=== PATIENT | female | born 1985 | race Caucasian/White ===

== ENCOUNTER 2022-01-13 13:57 | Emergency (ER) | payer OTHER, SELFPAY ==
[2022-01-13] VITALS (9 sets, daily range): BP systolic 134–157; BP diastolic 70–96; PULSE 63–83; RESP 15–21; TEMP 36.3; O2SAT 98–100; BMI 32.0
--- NOTE | 2022-01-13 14:15 | DI.CT.S_ITS ---
PROCEDURE: CT STROKE INDICATIONS: Right-sided weakness TECHNIQUE: Noncontrast 4.5 mm thick angled axial sections acquired from the foramen magnum to the vertex, with coronal reformats. For radiation dose reduction, the following was used: automated exposure control, adjustment of mA and/or kV according to patient size. COMPARISON: None. FINDINGS: Image quality: Excellent. CSF spaces: Basal cisterns are patent. No extra-axial fluid collections. Ventricles are normal in size and shape. Brain: No midline shift. No intracranial masses or hemorrhage. Ortez-white matter interface is normal. Skull and face: Calvarium and visualized facial bones are intact, without suspicious lesions. Sinuses: Visualized sinuses and mastoids are clear. IMPRESSION: No acute intracranial abnormality. Findings were discussed with the referring physician, Dr. Devries, by telephone on 01/13/2022 at 2:33 PM. This study fulfills neurological imaging criteria for inclusion or exclusion of acute stroke therapies based on available published neurological imaging guidelines. Dictated by: Casey Vidales M.D. on 01/13/2022 at 14:30 Approved by: Casey Vidales M.D. on 01/13/2022 at 14:33
--- NOTE | 2022-01-13 14:27 | DI.CT.S_ITS ---
PROCEDURE: CT ANGIO HEAD AND NECK INDICATIONS: Right-sided weakness TECHNIQUE: Noncontrast images were performed earlier in the day and not repeated. After the administration of intravenous contrast, 1 mm thick sections acquired from the aortic arch through the [place] of [place]. Post-contrast 4.5 mm thick sections then re-acquired from the foramen magnum to the vertex. 3-dimensional slcemmg-specrfhec-hqtyvyshdl (MIP) and/or volume rendering reformats were acquired of the central intracranial vasculature and neck separately. For radiation dose reduction, the following was used: automated exposure control, adjustment of mA and/or kV according to patient size. COMPARISON: [facility], CT, CT STROKE, 01/13/2022, 14:19. FINDINGS: Image quality: Excellent. BRAIN: CSF spaces: Ventricles are normal in size and shape. Basal cisterns are patent. No extra-axial fluid collections. Brain: No midline shift. No intracranial bleeds or masses. Ortez-white matter interface appears intact. Skull and face: Calvarium and facial bones appear intact, without suspicious lesions. Orbits appear normal. Sinuses: Sinuses and mastoids are clear. HEAD CT ANGIOGRAPHY: Anterior circulation: Intracranial internal carotid arteries are normal in size and flow. The flow within the paired anterior cerebral arteries is normal and symmetric. The flow within the middle cerebral arteries is normal and symmetric. Note is made of early trifurcation of the right middle cerebral artery, with a very short right M1 segment. This is regarded to be a developmental variant. The anterior communicating artery is seen. No aneurysms are seen. Posterior circulation: Visualized portions of the vertebral arteries demonstrate normal caliber, and join to form a normal appearing basilar artery. Flow within the posterior cerebral arteries is normal and symmetric. No aneurysms are seen. NECK CT ANGIOGRAPHY: Carotid system: Incidental note is made of a common origin of the right brachiocephalic artery and the left common carotid artery (bovine type arch). This is considered to be a developmental variant of no clinical consequence. The origins of the common carotid arteries appear patent. The common carotid arteries demonstrate normal caliber and courses. The bifurcation regions are both widely patent. The internal carotid arteries demonstrate normal calibers and courses. Posterior circulation: The origins of the vertebral arteries both appear widely patent. The more superior extracranial portions of both vertebral arteries also demonstrate normal courses and calibers. They join to form a normal appearing basilar artery. Soft tissues: Visualized neck soft tissues demonstrate no suspicious abnormalities. Bones: No suspicious bony lesions. Visualized cervical spine appears normally aligned. IMPRESSION: No significant intracranial arterial abnormality is seen. Within the arteries of the neck, no hemodynamically significant stenosis can be seen. No findings of dissection are seen. If there is strong clinical suspicion for an acute stroke, please consider a brain MRI for further evaluation, as it is more sensitive (assuming that there is no contraindication to MRI). 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 Dictated by: Jose Agrawal M.D. on 01/13/2022 at 14:13 Approved by: Jose Agrawal M.D. on 01/13/2022 at 14:15
--- NOTE | 2022-01-13 14:48 | ED.NEUROSD ---
HPI - Neuro Symptoms/Deficit General Chief Complaint: Neuro Symptoms/Deficit Stated Complaint: Numbness/tingling Rt. side Time Seen by Provider: 01/13/22 14:09 Source: patient Mode of arrival: EMS History of Present Illness HPI Narrative: Patient is a 36-year-old female with history of ADHD presenting today with sudden onset of right-sided weakness. 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 She is left-handed dominant however at work she uses her right hand to pump up a blood pressure cuff. LKW 11:00 a.m. she could not use her hand. She could not use the mouse her hand was extremely weak. She felt like her whole right side of her body went numb. She is not able to lift her right leg. She arrived here at 2pm. No prior history On Anticoagulants: No Related Data Allergies Allergy/AdvReac Type Severity Reaction Status Date / Time hydrocodone Allergy Verified 01/13/22 14:03 Review of Systems Review of Systems Narrative: GENERAL: Denies chills, fatigue, malaise, fever, sweats, travel HEENT: Denies sinus pain, ear pain, sore throat, difficulty swallowing, neck pain RESPIRATORY: Denies dyspnea, cough, wheezing, hemoptysis, sputum. CARDIOVASCULAR: Denies chest pain, palpitations, orthopnea, edema GASTROINTESTINAL: Denies nausea, vomiting, abdominal pain, diarrhea, constipation, melena. : Denies dysuria, frequency, incontinence, hematuria, urinary retention, flank pain. MUSCULOSKELETAL: Denies weakness, joint pain, or bony pain SKIN: No rash, no erythema, no pruritus NEUROLOGIC: See HPI PSYCHIATRIC: No concerning psychosocial issues. 12 point review of systems is negative except for those stated above and HPI Hematologic/Lymphatic On Anticoagulants: No Patient History Social History Smoking Status: Unknown if ever smoked Smoking Status: Unknown if ever smoked alcohol intake frequency: holidays/special occasions only Substance Use Type: does not use Exam Initial Vital Signs Initial Vital Signs: Vital Signs Temperature 97.3 F L 01/13/22 14:03 Pulse Rate 76 01/13/22 14:03 Respiratory Rate 15 01/13/22 14:03 Blood Pressure 137/96 H 01/13/22 14:03 Pulse Oximetry 99 01/13/22 14:03 Oxygen Delivery Method 01/13/22 14:03 GENERAL: Alert pleasant and in no acute distress. HEENT: Head atraumatic,EOMI, pupils reactive, face symmetric, moist mucous membranes CARDIOVASCULAR: Regular rate and rhythm without murmurs, rubs or gallops. RESPIRATORY: Breath sounds equal bilaterally, no wheezes rales or rhonchi. ABDOMEN: Soft, nontender. Normoactive bowel sounds all 4 quadrants. No guarding or rebound. EXTREMITIES: Normal range of motion, no clubbing or edema. Neurovascularly intact NEUROLOGICAL: Alert and oriented x4. Significant weakness in right leg is certainly unable to stand on it she to bend her knee very weak of right arm unable to get finger to nose no facial droop SKIN: Warm, dry, no laceration, no petechiae, no rashes or lesions. Scores NIH Stroke Scale Level of Conciousness: Alert, keenly responsive Ask month/age: Answers both questions correctly. Open/close eyes, close hand: Performs both tasks correctly Best gaze horizontal: Normal Visual moraes: No visual loss Facial palsy: Normal symetrical movement Left arm drift: No drift for full 10 sec Right arm drift: Some effort against gravity, cannot maintain, drifts down to bed Left leg drift: No drift for full 5 sec Right leg drift: Some effort against gravity, cannot maintain, drifts down to bed Limb ataxia: Absent Sensory on face/arms/legs: Mild to moderate sensory loss, can tell touch Best language: No aphasia, normal Dysarthria: Normal Extinction or inattention: No abnormality Total NIH Stroke scale score: 5 Course Orders Ordered: Discontinued Medications Sodium Chloride (Normal Saline 0.9%) 1,000 mls @ 150 mls/hr IV CONT BLANK Last Infusion: 01/13/22 17:48 Dose: 0 mls/hr Documented By: Admin: 01/13/22 15:41 Dose: 150 mls/hr Documented By: GELACIO Ketorolac Tromethamine (Ketorolac 30 Mg/Ml Vial) 15 mg IV NOW ONE Stop: 01/13/22 16:20 Last Admin: 01/13/22 17:20 Dose: Not Given Documented By: ALFONSO Vital Signs Vital signs: Vital Signs - 8 hr 01/13/22 14:03 01/13/22 15:34 01/13/22 15:34 Temperature 97.3 F L Pulse Rate 76 Respiratory Rate 15 Blood Pressure 137/96 H 134/79 Pulse Oximetry 99 100 Oxygen Delivery Method Room Air 01/13/22 16:00 01/13/22 16:25 01/13/22 16:25 Temperature Pulse Rate 63 66 Respiratory Rate 21 18 Blood Pressure 140/80 Pulse Oximetry 100 99 Oxygen Delivery Method 01/13/22 16:30 01/13/22 16:30 01/13/22 17:11 Temperature Pulse Rate 65 83 Respiratory Rate 20 Blood Pressure 138/85 Pulse Oximetry 98 100 Oxygen Delivery Method 01/13/22 17:14 01/13/22 17:14 01/13/22 17:30 Temperature Pulse Rate 71 Respiratory Rate 18 Blood Pressure 157/80 H 143/87 H Pulse Oximetry 99 Oxygen Delivery Method 01/13/22 17:30 Temperature Pulse Rate 74 Respiratory Rate 20 Blood Pressure Pulse Oximetry 99 Oxygen Delivery Method MDM - Neuro Symptoms/Deficit Lab Data Result diagrams: 01/13/22 14:40 01/13/22 14:40 Labs: Lab Results 01/13/22 01/13/22 01/13/22 Range/Units 14:40 14:40 14:40 WBC 12.0 H (4.5-11.0) X10^3/uL RBC 4.65 (4.0-5.2) X10^6/uL Hgb 14.0 (12.0-16.0) g/dL Hct 40.6 (36-46) % MCV 87.4 (80-100) fL MCH 30.1 (26-34) PG MCHC 34.5 (30-36) % RDW 12.7 (11.6-14.8) % Plt Count 350 (150-400) X10^3/uL Neut % (Auto) 73.5 (50-75) % Lymph % (Auto) 20.3 L (25-40) % [place] % (Auto) 4.7 (3-14) % Eos % (Auto) 0.5 L (2-4) % Baso % (Auto) 1.0 (0-2) % Neut # (Auto) 8800 H (9922-3387) /uL Lymph # (Auto) 2400 (6499-5922) /uL [place] # (Auto) 600 (0-900) /uL Eos # (Auto) 100 (0-450) /uL Baso # (Auto) 100 (0-100) /uL PT 11.7 (10.1-12.7) SECONDS INR 1.1 (0.9-1.3) APTT 32 (26.4-36.2) SECONDS Sodium 139 (137-145) mmol/L Potassium 4.0 (3.4-5.1) mmol/L Chloride 105 (98-107) mmol/L Carbon Dioxide 25 (22-32) mmol/L BUN 10 (7-17) mg/dL Creatinine 0.82 (0.52-1.04) mg/dL Estimated GFR > 60 (>60) mL/min BUN/Creatinine Ratio 12.2 (6-22) Glucose 111 H (70-100) mg/dL Calcium 9.1 (8.4-10.2) mg/dL Total Bilirubin 0.3 (0.2-1.3) mg/dL AST 24 (14-36) IU/L ALT 15 (<35) IU/L Alkaline Phosphatase 103 (38-126) U/L Total Creatine Kinase 94 (30-135) U/L CK-MB (CK-2) TNP CK-MB (CK-2) Rel Index TNP Troponin I < 0.012 (0.01-0.034) ng/mL Total Protein 7.7 (6.3-8.2) g/dL Albumin 4.4 (3.5-5.0) g/dL Globulin 3.3 (1.7-4.1) g/dL Albumin/Globulin Ratio 1.3 (1.0-2.8) Serum , Qual (Negative) U Opiates 300ng/mL cut (Negative) Ur Oxycodone Screen (Negative) Urine Methadone Screen (Negative) Ur Barbiturates Screen (Negative) U Tricyclic Antidepress (Negative) Ur Phencyclidine Scrn (Negative) Ur Amphetamines Screen (Negative) U Methamphetamines Scrn (Negative) Ur MDMA Scrn (Ecstasy) (Negative) U Benzodiazepines Scrn (Negative) Urine Cocaine Screen (Negative) U Marijuana (THC) Screen (Negative) SARS-CoV-2 (PCR) (Negative) 01/13/22 01/13/22 01/13/22 Range/Units 14:40 15:15 15:40 WBC (4.5-11.0) X10^3/uL RBC (4.0-5.2) X10^6/uL Hgb (12.0-16.0) g/dL Hct (36-46) % MCV (80-100) fL MCH (26-34) PG MCHC (30-36) % RDW (11.6-14.8) % Plt Count (150-400) X10^3/uL Neut % (Auto) (50-75) % Lymph % (Auto) (25-40) % [place] % (Auto) (3-14) % Eos % (Auto) (2-4) % Baso % (Auto) (0-2) % Neut # (Auto) (7874-6996) /uL Lymph # (Auto) (8039-4542) /uL [place] # (Auto) (0-900) /uL Eos # (Auto) (0-450) /uL Baso # (Auto) (0-100) /uL PT (10.1-12.7) SECONDS INR (0.9-1.3) APTT (26.4-36.2) SECONDS Sodium (137-145) mmol/L Potassium (3.4-5.1) mmol/L Chloride (98-107) mmol/L Carbon Dioxide (22-32) mmol/L BUN (7-17) mg/dL Creatinine (0.52-1.04) mg/dL Estimated GFR (>60) mL/min BUN/Creatinine Ratio (6-22) Glucose (70-100) mg/dL Calcium (8.4-10.2) mg/dL Total Bilirubin (0.2-1.3) mg/dL AST (14-36) IU/L ALT (<35) IU/L Alkaline Phosphatase (38-126) U/L Total Creatine Kinase (30-135) U/L CK-MB (CK-2) CK-MB (CK-2) Rel Index Troponin I (0.01-0.034) ng/mL Total Protein (6.3-8.2) g/dL Albumin (3.5-5.0) g/dL Globulin (1.7-4.1) g/dL Albumin/Globulin Ratio (1.0-2.8) Serum , Qual Negative (Negative) U Opiates 300ng/mL cut Negative (Negative) Ur Oxycodone Screen Negative (Negative) Urine Methadone Screen Negative (Negative) Ur Barbiturates Screen Negative (Negative) U Tricyclic Antidepress Positive H (Negative) Ur Phencyclidine Scrn Negative (Negative) Ur Amphetamines Screen Positive H (Negative) U Methamphetamines Scrn Negative (Negative) Ur MDMA Scrn (Ecstasy) Negative (Negative) U Benzodiazepines Scrn Negative (Negative) Urine Cocaine Screen Positive H (Negative) U Marijuana (THC) Screen Negative (Negative) SARS-CoV-2 (PCR) Negative (Negative) Point of Care Testing Test Results Negative Glucose POC 108 Urine Dip Bedside Urine Glucose Negative Bedside Urine Bilirubin - Negative Bedside Urine Ketone - Negative Urine Specific [place] 1.030 Bedside Urine Occult Blood - Negative Bedside Urine pH 6 Bedside Urine Protein +/- 15 Bedside Urine Urobilinogen - Negative Bedside Urine Nitrite - Negative Bedside Urine Leukocytes - Negative Esterase Imaging Data CT scan - head: Radiologist's Impression: Signed Patient: Marianne Shook MR#: [id number] : 1985 Acct:[id number] Age/Sex: 36 / F Date of Service: 01/13/22 Loc: ED Accession Number: [id number] ?? Procedure: CT Stroke Ordering Provider: Gracia Devries D.O. PROCEDURE:? CT STROKE ? INDICATIONS:? Right-sided weakness ? TECHNIQUE:? Noncontrast 4.5 mm thick angled axial sections acquired from the foramen magnum to the vertex, with coronal reformats.? For radiation dose reduction, the following was used:? automated exposure control, adjustment of mA and/or kV according to patient size.? ? COMPARISON:? None. ? FINDINGS:? Image quality:? Excellent.? ? CSF spaces:? Basal cisterns are patent.? No extra-axial fluid collections.? Ventricles are normal in size and shape.? ? Brain:? No midline shift.? No intracranial masses or hemorrhage.? Ortez-white matter interface is normal.? ? Skull and face:? Calvarium and visualized facial bones are intact, without suspicious lesions.? ? Sinuses:? Visualized sinuses and mastoids are clear.? ? IMPRESSION:? No acute intracranial abnormality. ? Findings were discussed with the referring physician, Dr. Devries, by telephone on 01/13/2022 at 2:33 PM. ? ? This study fulfills neurological imaging criteria for inclusion or exclusion of acute stroke therapies based on available published neurological imaging guidelines.? ? ? Dictated by: Casey Vidales M.D. on 01/13/2022 at 14:30 ?? CTA - brain/neck: Radiologist's Impression: [address] [address] [address] Scan Report Signed Patient: Marianne Shook MR#: [id number] : 1985 Acct:[id number] Age/Sex: 36 / F Date of Service: 01/13/22 Loc: ED Accession Number: [id number] ?? Procedure: CT angio head and neck Ordering Provider: Gracia Devries D.O. PROCEDURE:? CT ANGIO HEAD AND NECK ? INDICATIONS:? Right-sided weakness ? TECHNIQUE:? Noncontrast images were performed earlier in the day and not repeated.? ? After the administration of intravenous contrast, 1 mm thick sections acquired from the aortic arch through the [place] of [place].? Post-contrast 4.5 mm thick sections then re-acquired from the foramen magnum to the vertex.? 3-dimensional koegrmk-arauukzgk-hguguutdkp (MIP) and/or volume rendering reformats were acquired of the central intracranial vasculature and neck separately. For radiation dose reduction, the following was used:? automated exposure control, adjustment of mA and/or kV according to patient size.? ? COMPARISON:? [facility], CT, CT STROKE, 01/13/2022, 14:19. ? FINDINGS:? Image quality:? Excellent.? ? BRAIN:? CSF spaces:? Ventricles are normal in size and shape.? Basal cisterns are patent.? No extra-axial fluid collections.? ? Brain:? No midline shift.? No intracranial bleeds or masses.? Ortez-white matter interface appears intact.? ? Skull and face:? Calvarium and facial bones appear intact, without suspicious lesions.? Orbits appear normal.? ? Sinuses:? Sinuses and mastoids are clear.? ? HEAD CT ANGIOGRAPHY:? Anterior circulation:? Intracranial internal carotid arteries are normal in size and flow.? The flow within the paired anterior cerebral arteries is normal and symmetric.? The flow within the middle cerebral arteries is normal and symmetric.? Note is made of early trifurcation of the right middle cerebral artery, with a very short right M1 segment.? This is regarded to be a developmental variant.? The anterior communicating artery is seen.? No aneurysms are seen.? ? Posterior circulation:? Visualized portions of the vertebral arteries demonstrate normal caliber, and join to form a normal appearing basilar artery.? Flow within the posterior cerebral arteries is normal and symmetric.? No aneurysms are seen.? ? NECK CT ANGIOGRAPHY:? Carotid system:? Incidental note is made of a common origin of the right brachiocephalic artery and the left common carotid artery (bovine type arch). This is considered to be a developmental variant of no clinical consequence. ? The origins of the common carotid arteries appear patent.? The common carotid arteries demonstrate normal caliber and courses.? The bifurcation regions are both widely patent.? The internal carotid arteries demonstrate normal calibers and courses.? ? Posterior circulation:? The origins of the vertebral arteries both appear widely patent.? The more superior extracranial portions of both vertebral arteries also demonstrate normal courses and calibers.? They join to form a normal appearing basilar artery.? ? Soft tissues:? Visualized neck soft tissues demonstrate no suspicious abnormalities.? ? Bones:? No suspicious bony lesions.? Visualized cervical spine appears normally aligned.? IMPRESSION:? No significant intracranial arterial abnormality is seen.? ? Within the arteries of the neck, no hemodynamically significant stenosis can be seen. ? No findings of dissection are seen. ? If there is strong clinical suspicion for an acute stroke, please consider a brain MRI for further evaluation, as it is more sensitive (assuming that there is no contraindication to MRI). ? ? ? 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 Any quantitative measurements of stenosis were performed using NASCET criteria.? ? ? Dictated by: Jose Agrawal M.D. on 01/13/2022 at 14:13 ?? MR strokeq: Radiologist's Impression: Signed Patient: Marianne Shook MR#: [id number] : 1985 Acct:[id number] Age/Sex: 36 / F Date of Service: 01/13/22 Loc: ED Accession Number: [id number] ?? Procedure: MR head/brain wo con Ordering Provider: Gracia Devries D.O. PROCEDURE:? MR HEAD/BRAIN WO CON ? INDICATIONS:? right sided weakness ? TECHNIQUE:? Noncontrast axial T1 spin echo, axial T2 fast spin echo, sagittal and axial FLAIR, coronal T2 fast spin echo, axial gradient echo, axial diffusion and ADC through the brain.? ? COMPARISON:? [facility], CT, CT STROKE, 01/13/2022, 14:19.? [facility], CT, CT ANGIO HEAD AND NECK, 01/13/2022, 14:19. ? FINDINGS:? Image quality:? Mild motion artifact can be seen. ? CSF Spaces:? Basal cisterns are patent.? No extra-axial fluid collections.? Ventricles are normal in size and shape.? ? Brain:? No intracranial masses or hemorrhage.? Ortez/white matter interface is normal.? Brainstem appears normal.? Diffusion-weighted images demonstrate no acute ischemic insult.? No chronic ischemic insults.? Normal intravascular flow voids are present.? ? Skull and face:? Calvarium has normal marrow signal.? Orbits appear normal.? ? Sinuses:? Sinuses and mastoids are clear.? ? IMPRESSION:? No findings of acute or subacute infarction can be seen. ? ? Dictated by: Jose Agrawal M.D. on 01/13/2022 at 16:10 ? ? ECG Data Interpretation: Normal sinus rhythm rate 76 LA interval 140 QRS [address] changes no T-wave inversions Q-waves noted in lead 3 only no priors to compare MDM Narrative Medical decision making narrative: Patient has obvious right-sided weakness. She denies any headache he is certainly approaching time limit for tPA. Marylou Long, stroke neurology updated patient's symptoms test results did tele health evaluation. Patient actually does have a history of migraine she has migraines twice a week. This seems to be an atypical migraine even though she does not have a headache. Recommend MRI and monitor Patient's symptoms are improving slowly. MRI negative symptoms are improving. Patient drug use of cocaine and methamphetamines however she denies any drug use currently. May are may not be contributing to her symptoms today. More importantly her symptoms are improving she is eating infiltrating able to go home. Discharge Plan Departure Patient Disposition: Home Clinical Impression: Atypical migraine Instructions: Migraine -- Adult Activity Restrictions/Additional Instructions: *You have been diagnosed with atypical migraine headache *What to do: And let today that her MRI and scans are negative. Happy that your symptoms improved. *Continue to take medications as directed *Follow up with your primary care provider in 2-3 days or call [phone] *Return to ER if you should have increasing weakness numbness tingling, or any new, worsening or concerning symptoms Referrals: Nicole Haney MD [Physician] - Visit Report Forms: Patient Portal/API
[2022-01-13 14:50] LABS: Add Manual Diff / Slide Review NO; Basophils Absolute Auto 100 /uL (0-100); Eosinophils Absolute Auto 100 /uL (0-450); Eosinophils Percent Auto 0.5 % (2-4); Hematocrit 40.6 % (36-46); Lymphocytes Absolute Auto 2400 /uL (1100-4500); Lymphocytes Percent Auto 20.3 % (25-40); Mean Corpuscular HGB Conc 34.5 % (30-36); Mean Corpuscular Hemoglobin 30.1 PG (26-34); Mean Corpuscular Volume 87.4 fL (80-100); Monocytes Absolute Auto 600 /uL (0-900); Monocytes Percent Auto 4.7 % (3-14); Neutrophils Absolute Auto 8800 /uL (1500-7000); Neutrophils Percent Auto 73.5 % (50-75); Platelet Count 350 X10^3/uL (150-400); Red Blood Cell Count 4.65 X10^6/uL (4.0-5.2); Red Cell Distribution Width 12.7 % (11.6-14.8)
[2022-01-13 14:56] LABS: INR 1.1 (0.9-1.3); Prothrombin Time 11.7 SECONDS (10.1-12.7)
[2022-01-13 14:59] LABS: PTT Partial Thromboplastin Tim 32 SECONDS (26.4-36.2)
[2022-01-13 15:03] LABS: Alanine Aminotransferase 15 IU/L (<35); Albumin 4.4 g/dL (3.5-5.0); Albumin Globulin Ratio 1.3 (1.0-2.8); Alkaline Phosphatase 103 U/L (38-126); Aspartate Aminotransferase 24 IU/L (14-36); BUN Creatinine Ratio 12.2 (6-22); Bilirubin Total 0.3 mg/dL (0.2-1.3); Blood Urea Nitrogen 10 mg/dL (7-17); Calcium 9.1 mg/dL (8.4-10.2); Carbon Dioxide 25 mmol/L (22-32); Chloride 105 mmol/L (98-107); Creatine Kinase 94 U/L (30-135); Estimated Glomerular Filt Rate > 60 mL/min (>60); Globulin 3.3 g/dL (1.7-4.1); Glucose 111 mg/dL (70-100); HEMOLYSIS < 15 (0-50); Sodium 139 mmol/L (137-145); Total Protein 7.7 g/dL (6.3-8.2)
[2022-01-13 15:14] LABS: Troponin I < 0.012 ng/mL (0.01-0.034)
[2022-01-13 15:19] LABS: Pregnancy Test Serum,Qual Negative (Negative)
[2022-01-13 15:24] LABS: UR Morphine/Opiate cutoff 300 Negative (Negative); Ur Creatinine Normal (Normal); Ur Specific Gravity Normal (Normal); Urine Amphetamines Positive (Negative); Urine Barbiturates Negative (Negative); Urine Benzodiazepines Negative (Negative); Urine Cocaine Positive (Negative); Urine MDMA Negative (Negative); Urine Methadone Negative (Negative); Urine Methamphetamines Negative (Negative); Urine Oxycodone Negative (Negative); Urine Phencyclidine Negative (Negative); Urine Tetrahydrocannabinol Negative (Negative); Urine Tricyclic Antidepressant Positive (Negative); Urine pH Normal (Normal)
--- NOTE | 2022-01-13 15:28 | PC.NURSE ---
Per [facility] Neuro, fibrinolytics not indicated at this time. Plan for MRI and admission.
[2022-01-13] MEDS: SODIUM CHLORIDE 0.9% 1,000 ML 150 ML IV (15:41)
[2022-01-13 16:02] LABS: COVID19 -Nasal RAPID Negative (Negative)
--- NOTE | 2022-01-13 16:18 | DI.MRI.S_ITS ---
PROCEDURE: MR HEAD/BRAIN WO CON INDICATIONS: right sided weakness TECHNIQUE: Noncontrast axial T1 spin echo, axial T2 fast spin echo, sagittal and axial FLAIR, coronal T2 fast spin echo, axial gradient echo, axial diffusion and ADC through the brain. COMPARISON: [facility], CT, CT STROKE, 01/13/2022, 14:19. [facility], CT, CT ANGIO HEAD AND NECK, 01/13/2022, 14:19. FINDINGS: Image quality: Mild motion artifact can be seen. CSF Spaces: Basal cisterns are patent. No extra-axial fluid collections. Ventricles are normal in size and shape. Brain: No intracranial masses or hemorrhage. Ortez/white matter interface is normal. Brainstem appears normal. Diffusion-weighted images demonstrate no acute ischemic insult. No chronic ischemic insults. Normal intravascular flow voids are present. Skull and face: Calvarium has normal marrow signal. Orbits appear normal. Sinuses: Sinuses and mastoids are clear. IMPRESSION: No findings of acute or subacute infarction can be seen. Dictated by: Jose Agrawal M.D. on 01/13/2022 at 16:10 Approved by: Jose Agrawal M.D. on 01/13/2022 at 16:11
== END 2022-01-13 18:16 | disposition home or self-care (01) ==
PROVIDERS: Emergency Provider Emergency Medicine
DX: G43.009 Migraine without aura, not intractable, without status migrainosus (principal); Z20.822 Contact with and (suspected) exposure to COVID-19
CPT/HCPCS: 36415; 70450; 70496; 70498; 70551; 80053; 80305; 81003; 81025; 82550; 82962; 84484; 84703; 85025; 85610; 85730; 87635; 93005; 96360; 96361; 99284; 99285; C9803; Q3014; J1885; Q9967